=== PATIENT | male | born 1965 | race Caucasian/White ===

== ENCOUNTER → 2022-09-29 11:55 | Outpatient (CLI) | payer BC, SELFPAY ==
--- NOTE | 2022-09-29 12:03 | CT_ITS ---
FINAL REPORT TECHNIQUE: Thin section axial images were obtained through the heart and coronary arteries per CT coronary calcium score protocol. This study was performed with techniques to keep radiation doses as low as reasonably achievable (ALARA). Individualized dose reduction techniques using automated exposure control or adjustment of mA and/or kV according to the patient's size were employed. CLINICAL HISTORY: . FINDINGS: On the axial images, there is calcification within the right coronary artery and LAD. This gives a coronary artery calcium score of 180 based on the Agatston scale. This coronary calcium score places the patient within the 73 percentile based on age and gender. The heart is normal in size. Limited evaluation of the lungs reveal no suspicious nodule. IMPRESSION: Coronary artery calcium score of 180 puts the patient at 73 percentile based on age and gender. Reviewed, Interpreted and Dictated by Sandra Campbell MD Transcribed by Angela Zhao Authenticated and . [facility]
[2022-09-29 12:45] LABS: Basophils # 0.1 K/mm3 (0-0.2); Basophils % 1.6 % (0.1-2.0); Eosinophils # 0.1 K/mm3 (0.0-0.4); Eosinophils % 1.9 % (0.1-12.0); Hemoglobin 16.5 g/dL (14.1-18.0); Lymphocytes # 2.4 K/mm3 (0.7-4.5); Lymphocytes % 30.9 % (10-50); Mean Corpuscular Volume 91.4 fl (80-94); Mean Platelet Volume 8.6 fl (7.4-10.4); Monocytes # 0.5 K/mm3 (0.1-1.0); Neutrophils # 4.6 K/mm3 (1.8-7.8); Neutrophils % 59.5 % (37.0-80.0); Platelet Count 230 K/mm3 (142-424); Red Blood Count 5.14 M/mm3 (4.60-6.20); Red Cell Distribution Width 13.1 % (11.5-17.5); White Blood Count 7.7 K/mm3 (4.8-10.8)
[2022-09-29 12:49] LABS: Chloride 100 mmol/L (98-107)
[2022-09-29 12:50] LABS: Potassium 3.9 mmoL/L (3.5-5.1); Sodium 139 mmol/L (136-145)
[2022-09-29 12:52] LABS: Alanine Aminotransferase 42 U/L (12-78); Anion Gap 11.9 mEq/L (5-15); Aspartate Amino Transferase 45 U/L (17-59); Bilirubin,Unconjugated 0.7 mg/dL (0.0-1.1); Blood Urea Nitrogen 15 mg/dl (9-20); Carbon Dioxide 31 mmol/L (22.0-30.0); Estimated Glomerular Filt Rate 99 ml/min (>60); GFR (African American) 120 ML/MIN (>60)
[2022-09-29 12:53] LABS: Albumin Level 4.6 g/dl (3.5-5.0); Alkaline Phosphatase 79 U/L (38-126); Bilirubin,Direct 0.1 mg/dl (0.0-0.4); Bilirubin,Indirect 0.8 mg/dL (0.0-0.9); Bilirubin,Total 0.9 mg/dl (0.2-1.3); Glucose 96 mg/dl (74-100); Total Protein,Serum 8.2 g/dl (6.3-8.2)
[2022-09-29 13:10] LABS: Troponin I < 0.01 ng/ml (0.00-0.034)
[2022-09-29 13:13] LABS: Free T4 (Free Thyroxine) 0.88 ng/dl (0.78-2.19)
[2022-09-29 13:23] LABS: Thyroid Stimulating Hormone 1.41 uIU/mL (0.465-4.68)
== END ==
PROVIDERS: PCP Nurse Practitioner; Visit Provider Internal Medicine
DX: R06.00 Dyspnea, unspecified (principal); R06.09 Other forms of dyspnea; R00.1 Bradycardia, unspecified; R07.89 Other chest pain; R94.31 Abnormal electrocardiogram [ECG] [EKG]; Z82.49 Family history of ischemic heart disease and other diseases of the circulatory system; E11.9 Type 2 diabetes mellitus without complications; I63.9 Cerebral infarction, unspecified
CPT/HCPCS: 36415; 75571; 80048; 80076; 84439; 84443; 84484; 85025

== ENCOUNTER → 2022-10-05 07:16 | Outpatient (CLI) | payer BC, SELFPAY ==
--- NOTE | 2022-10-05 07:17 | NM_ITS ---
APPROVED REPORT Exam: Nuclear Stress Test Indication: Chest pain, SOB, Syncope, HTN, High cholesterol, Family history Patient Location: Outpatient Stress Tech: Oksana Vasques NM Tech:Aury Conti, ARRT, RT (R)(N) Ht: 6 ft 2 in Wt: 245 lbs HR: 63 bpm BP: 145/84 mmHg BSA: 2.37 m2 TID: 1.01 BMI: 31.4 History: Chest pain, SOB, Syncope, HTN, High cholesterol, Family history Procedure: Patient received a 0.4 mg of intravenous Lexiscan, resting heart rate 63 bpm, resting blood pressure 145/84 mmHg, with Lexiscan maximum heart rate achived was 88 bpm which is Less than 85 % of the maximum predicted heart rate and blood pressure was 152/78 mmHg. With Lexiscan, patient denied any complaint of chest pain. Electrocardiogram Resting electrocardiogram shows sinus rhythm, with Lexiscan there is less than 1.[address] segment depression noted from the baseline EKG. The EKG portion of the Lexiscan is nondiagnostic. Cardiac Stress and Resting SPECT Images: Cardiac Stress and Resting SPECT images were obtained using technetium 99m Myoview 29.9 mCi stress and 10.37 mCi at rest. Gated SPECT for analysis of segmental wall motion and calculation of the ejection fraction also done. Prone images were also obtained. Cardiac stress and rest SPECT images show uniform myocardial activity without segmental perfusion abnormality, computer derived ejection fraction is 56% with no regional wall motion abnormality, right ventricle is normal size and contractility. Conclusion: 1. The EKG portion of the Lexiscan is nondiagnostic. 2. No scintigraphic evidence of reversible ischemia seen, computer derived ejection fraction is 56% with no regional wall motion abnormality, right ventricle is normal size and contractility. 3. Normal Lexiscan Myoview study. Electronically signed by : Joseph Abreu MD 10/06/2022 07:08:11
--- NOTE | 2022-10-05 08:21 | CA_ITS ---
APPROVED REPORT EXAM: Comprehensive 2D, Doppler, and color-flow Echocardiogram Director Decision Support: Gabi Dow RVT Ht: 6 ft 2 in Wt: 246lbs BSA: 2.37 BP: 132/87 mmHg Indications: CP,SOA,ABN EKG,BRADYCARDIA,HX CVA,DM 2D Dimensions LVOT 2.06 cm (M/F) 1.5-2.5 LA Volume 54.50 mL LA Volume Index 22.90 mL/m2 (M/F) 16-34 M-Mode Dimensions RVDd 2.91 cm (0.9-2.6) LA Diam 3.89 cm (1.9-4.0) LVDd 5.23 cm (3.5-5.7) Ao Diam 3.18 cm (2.0-3.7) LVDs 3.15 cm (3.5-5.7) IVSd 0.99 cm (0.6-1.1) PWd 0.68 cm (0.6-1.1) EF (Teich) 70.00% FS 39.80% EDV (Teich) 131.20 mL ESV (Teich) 39.40 mL LV Diastology E Decel Time 220.00 (160-240 msec) E/A Ratio 1.0 MED E' 9.20 (< 7 cm/sec) E'/MED E' Ratio 10.46 (>14) LAT E' 8.50 (<10 cm/sec) E/LAT E' Ratio 11.32 (>14) Aortic Valve AO Peak GR. 6.60 mmHg Mitral Valve MV E Max Jabari. 96.00 (40-130 cm/s) MV A Velocity 94.00 (40-130 cm/s) E/A Ratio 1.03 MV Decel. Time 220.00 (160-240 ms) MV PHT 64.00 ms Pulmonary Valve PV Peak Velocity 98.00 (50-150 cm/s) Left Ventricle Left atrium is mildly enlarged, left ventricle is normal size, estimated ejection fraction 55% with no regional wall motion abnormality, diastolic parameters are inconclusive. Right Ventricle Right atrium and right ventricle are mildly enlarged with normal contractility. Aortic Valve Aortic valve is minimally thickened and fibrosed there is no aortic stenosis aortic insufficiency. Mitral Valve Mitral valve grossly normal, there is trace mitral regurgitation. Tricuspid Valve Tricuspid grossly normal, there is trace tricuspid regurgitation, tricuspid regurgitation jet velocity is inadequate for calculation of the right ventricular systolic pressure. Pulmonic Valve Pulmonic valve is poorly visualized. Great Vessels Aortic root is normal size. Inferior vena cava is poorly visualized. Pericardium No significant pericardial effusion noted. Conclusion 1. Mild biatrial enlargement, normal left ventricular size, estimated ejection fraction 55% with no regional wall motion abnormality, diastolic parameters are inconclusive. 2. Mildly enlarged right ventricle with normal contractility. 3. Trace mitral and tricuspid regurgitation. 4. No significant pericardial effusion noted. 5. Inferior vena cava is poorly visualized. Electronically signed by : Joseph Abreu MD 10/06/2022 06:26:42
--- NOTE | 2022-10-05 09:37 | HMH.ITSHM ---
Current Home Medications as stated by this patient Gómez Mukherjee or customer success representative. []VALSARTAN ROSUVASTATIN OMEPRAZOLE NITRO VITAMIN B12 VITAMIN D3 CETIRIZINE AMLODIPINE
--- NOTE | 2022-10-05 09:47 | CA_ITS ---
APPROVED REPORT Exam: Pharmacologic Technologist: Oksana Vasques Ht: 6 ft 2 in Wt: 246 lbs BSA: 2.37 m2 HR: 60 bpm BP: 145/84 mmHg Indications: Chest pain Medical History Medications: Amlodipine,,,,, Omeprazole,,,,, Vitamin B12,,,,, Vitamin D3,,,,, ZYRTEC,,,,, Nitroglycerin,,,,, RoSUVASTATIN,,,,, Valsartan HCTZ,,,,, Stress Test Details Test: LEXISCAN HR Resting HR: 63 bpm Max Heart Rate (APMHR): 162.888763 bpm Max HR Achieved: 88 bpm Target HR (85% APMHR): 137.192680 bpm % of APMHR: 54.32 Recovery HR: 61 bpm BP Resting BP: 145.0/84.0 mmHg Max BP: 152.0/78.0 mmHg Recovery BP: 129.0/75.0 mmHg ECG Clinical Exercise duration: 04:00 min Highest Stage Achieved: Stress ECG Conclusion Symptoms: Mild shortness of air, mild nausea, chest tightness. Arrhythmias/Ectopy: None ST-T Changes: < 1.[address] changes. Test Summary REST . . . . . . . Resting REST 08:15 . . 63 . 145/ 84 . . Stage 1 . . . . . . . Myoview Injected Stage 1 01:00 . . 83 . . . . Stage 2 01:00 . . 76 . 152/ 78 . . Stage 3 01:00 . . 73 . 126/ 72 . . Stage 4 01:00 . . 70 . 100/ 62 . Stop exercise at 04:00 RECOVERY 01:00 . . 62 . 109/ 70 . . RECOVERY 02:00 . . 66 . 109/ 70 . . RECOVERY 03:00 . . 69 . 117/ 72 . . RECOVERY 04:00 . . 68 . 114/ 72 . . RECOVERY . . . . . . . chest tightness Shortness of Breath RECOVERY 05:00 . . 75 . 114/ 72 . . RECOVERY 06:00 . . 66 . 123/ 74 . . RECOVERY 07:00 . . 60 . 123/ 74 . . RECOVERY 07:29 . . 63 . 129/ 75 . . Electronically signed by : Joseph Abreu MD 10/06/2022 07:05:46
== END ==
PROVIDERS: PCP Nurse Practitioner; Visit Provider Internal Medicine
DX: R07.89 Other chest pain (principal); R06.09 Other forms of dyspnea; R00.1 Bradycardia, unspecified; R94.31 Abnormal electrocardiogram [ECG] [EKG]; Z82.49 Family history of ischemic heart disease and other diseases of the circulatory system
CPT/HCPCS: 78452; 93017; 93306; A9502; J2785

== ENCOUNTER 2022-10-08 10:56 | Day surgery (SDC) | payer BC, SELFPAY ==
[2022-10-08] VITALS (11 sets, daily range): BP systolic 125–147; BP diastolic 70–86; PULSE 59–87; RESP 18; O2SAT 92–99; BMI 31.8
--- NOTE | 2022-10-08 09:33 | IR_ITS ---
APPROVED REPORT Patient Location: Outpatient PROCEDURES Left heart catheterization Left ventriculogram Selective coronary angiogram INDICATION Elevated calcium score of 180, Recalcitrant angina pectoris Informed consent was obtained prior to the procedure. COMPLICATIONS None Estimated Blood Loss: Less than 10 mls TECHNIQUE One percent lidocaine used to anesthetize the right anterior aspect of the wrist. The right radial artery was accessed via the Seldinger technique. A 6 Persian sheath was placed in the right radial artery. 2.5 mg of verapamil, 800 mcg of nitroglycerin, 1mg Lidocaine and 5000 U Heparin were given through the arterial sheath. The papa catheter was also used to perform selective coronary angiogram. At the end of the procedure the sheath was removed good hemostasis was achieved using Traclet band, patient was transferred to the postop holding area in stable condition. ANGIOGRAPHIC RESULTS The left main artery Normal The left anterior descending artery Has a proximal 10% stenosis followed by an additional proximal 20 to 30% stenosis. Immediately proximal to the first and only large diagonal artery the LAD has a 50% stenosis which then extends to a 50 to 60% stenosis immediately after the large diagonal artery. This 50 to 60% stenosis is concentric. The remaining LAD is widely patent. The large first diagonal artery has a proximal eccentric 40% stenosis The circumflex artery Is a nondominant vessel and has a proximal calcified 50% concentric stenosis followed by 70% stenosis immediately proximal to a moderate sized bifurcating first obtuse marginal artery and the true circumflex artery. This proximal stenosis extends into the proximal obtuse marginal artery and the true circumflex artery. The right coronary artery Is a large dominant vessel and has proximal 30% stenosis with a mid vessel calcified 30 to 40% concentric stenosis. The ARANDA ventriculogram reveals not performed The left ventricular end-diastolic pressure not measured IMPRESSION Moderate to severe two-vessel coronary disease as described above PLAN 1. At this point I recommend medical management. 2. Maximize all antianginal medications and add beta-killian and nitrates 3. LDL less than 55 to be achieved with high intensity statin 4. Unless patient exhibits recalcitrant angina pectoris refractory to medical management I would not advise stenting of these lesions. Technically the proximal LAD and mid LAD does involve the large first diagonal artery and may possibly require bifurcating stents which would increase the risk of in-stent restenosis. Given patient's angina is class II at this point I believe we can manage him medically. Likewise the circumflex artery would possibly require bifurcating stents and would also be subject to increased risk of in-stent restenosis should bifurcating stents occur 5. Avoidance of tobacco products Electronically signed by : Donis Watts MD 10/08/2022 14:28:26
== END 2022-10-08 16:34 | disposition home or self-care (01) ==
PROVIDERS: PCP Nurse Practitioner; Visit Provider Internal Medicine
DX: I25.118 Atherosclerotic heart disease of native coronary artery with other forms of angina pectoris (principal); Z82.49 Family history of ischemic heart disease and other diseases of the circulatory system; R93.1 Abnormal findings on diagnostic imaging of heart and coronary circulation; R94.31 Abnormal electrocardiogram [ECG] [EKG]; R07.9 Chest pain, unspecified; Z79.899 Other long term (current) drug therapy
CPT/HCPCS: 93458; 99152; C1725; C1760; C1769; J1644; Q9967

== ENCOUNTER → 2023-01-20 08:32 | Outpatient (CLI) | payer BC, SELFPAY ==
[2023-01-26 00:09] LABS: Pancreatic Elastase, Fecal <50 (>200)
== END ==
PROVIDERS: PCP Physician Assistant; Visit Provider Internal Medicine Gastroenterology
DX: R19.4 Change in bowel habit (principal); R19.7 Diarrhea, unspecified
CPT/HCPCS: 82656

== ENCOUNTER → 2023-02-15 10:40 | Outpatient (CLI) | payer BC, SELFPAY ==
[2023-02-15 11:31] LABS: Alanine Aminotransferase 36 U/L (12-78); Albumin Level 4.3 g/dl (3.5-5.0); Alkaline Phosphatase 86 U/L (38-126); Aspartate Amino Transferase 41 U/L (17-59); Basophils % 0.4 % (0.1-2.0); Bilirubin,Indirect 0.7 mg/dL (0.0-0.9); Bilirubin,Total 0.7 mg/dl (0.2-1.3); Bilirubin,Unconjugated 0.8 mg/dL (0.0-1.1); Blood Urea Nitrogen 15 mg/dl (9-20); Carbon Dioxide 29 mmol/L (22.0-30.0); Chloride 102 mmol/L (98-107); Chol/HDL Ratio 2.8 (1-3.5); Cholesterol 140 mg/dl (140-200); Eosinophils # 0.1 K/mm3 (0.0-0.4); Eosinophils % 2.1 % (0.1-12.0); Estimated Glomerular Filt Rate 99 ml/min (>60); GFR (African American) 120 ML/MIN (>60); Glucose 105 mg/dl (74-100); HDL Cholesterol 50 mg/dl (40-60); Hematocrit 43.6 % (42.0-52.0); Hemoglobin 14.6 g/dL (14.1-18.0); Lymphocytes # 1.8 K/mm3 (0.7-4.5); Magnesium 1.8 mg/dl (1.6-2.3); Mean Corpuscular HGB Conc 33.6 g/dL (31.8-35.4); Mean Corpuscular Hemoglobin 30.7 pg (27.0-31.2); Mean Corpuscular Volume 91.5 fl (80-94); Mean Platelet Volume 8.8 fl (7.4-10.4); Monocytes # 0.5 K/mm3 (0.1-1.0); Neutrophils # 3.7 K/mm3 (1.8-7.8); Neutrophils % 60.4 % (37.0-80.0); Platelet Count 183 K/mm3 (142-424); Red Blood Count 4.76 M/mm3 (4.60-6.20); Red Cell Distribution Width 13.3 % (11.5-17.5); Sodium 141 mmol/L (136-145); Total Protein,Serum 7.1 g/dl (6.3-8.2); Triglycerides 79 mg/dl (30-150); VLDL Cholesterol 16 mg/dL (0-40); White Blood Count 6.2 K/mm3 (4.8-10.8)
[2023-02-15 11:48] LABS: Free T4 (Free Thyroxine) 0.93 ng/dl (0.78-2.19)
[2023-02-15 11:55] LABS: Direct LDL Cholesterol 74.94 mg/dL (100-129)
[2023-02-15 12:02] LABS: Thyroid Stimulating Hormone 1.01 uIU/mL (0.465-4.68)
== END ==
PROVIDERS: PCP Nurse Practitioner; Visit Provider Nurse Practitioner
DX: R06.09 Other forms of dyspnea (principal); R07.89 Other chest pain; R00.1 Bradycardia, unspecified; I25.118 Atherosclerotic heart disease of native coronary artery with other forms of angina pectoris; R94.31 Abnormal electrocardiogram [ECG] [EKG]
CPT/HCPCS: 36415; 80048; 80061; 80076; 83735; 84439; 84443; 85025

== ENCOUNTER → 2023-08-19 13:28 | Outpatient (CLI) | payer BC, SELFPAY ==
--- NOTE | 2023-08-19 13:33 | US_ITS ---
FINAL REPORT CLINICAL HISTORY: CLAUDICATION,HTN COMPARISON: None FINDINGS: ANKLE-BRACHIAL PRESSURE INDICES Pressure indices are as follows: RIGHT LOWER EXTREMITY: Ankle-brachial pressure index: 1.2 Comments: Normal LEFT LOWER EXTREMITY: Ankle-brachial pressure index: 1.2 Comments: Normal IMPRESSION: No evidence of significant obstructive peripheral vascular disease of the lower extremities Reviewed, Interpreted and Dictated by Andrew Key III, MD Transcribed by Marianna Friedman Authenticated and . [facility]
== END ==
PROVIDERS: PCP Nurse Practitioner; Visit Provider Nurse Practitioner Family
DX: I73.9 Peripheral vascular disease, unspecified (principal); I25.10 Atherosclerotic heart disease of native coronary artery without angina pectoris
CPT/HCPCS: 93923